=== PATIENT | female | born 1975 | race Caucasian/White ===

== ENCOUNTER 2019-05-04 06:30 | Emergency (ER) | payer OTHER ==
[~2019-05-04] VITALS: Ht 172.7 cm; Wt 77.1 kg
[2019-05-04] MEDS ORDERED: DULOXETINE HCL30 MG PO (06:44)
[2019-05-04] MEDS ORDERED: LISINOPRIL2.5 MG PO (06:44)
[2019-05-04] MEDS ORDERED: METHYLPHENIDATE10 M4 PO (06:45)
[2019-05-04] MEDS ORDERED: BIRTHCONTROL (06:46)
[2019-05-04] MEDS ORDERED: XANAX1 MG PO (06:46)
[2019-05-04] MEDS ORDERED: MUCINEX600 MG PO (06:47)
[2019-05-04] MEDS ORDERED: SUPER THERAVIT1 EACH PO (06:47)
[2019-05-04] MEDS ORDERED: XYZAL5 MG PO (06:47)
[2019-05-04] MEDS ORDERED: FLONASE 0.05%50 MCG NARES (06:47)
[2019-05-04] MEDS ORDERED: GLUCOSAMINE &1 EACH PO (06:47)
[2019-05-04 06:57] LABS: ABSOLUTE EOSINOPHILS 0.1 thou/uL (0.0-0.7); ABSOLUTE MONOCYTES 0.6 thou/uL (0.0-1.2); ABSOLUTE NEUTROPHILS 6.8 thou/uL (1.6-8.1); BASOPHILS 0.5 %; EOSINOPHILS 1.2 %; HEMATOCRIT 35.6 % (37.0-47.0); HEMOGLOBIN 12.4 gm/dL (12.0-15.0); LYMPHOCYTES 20.8 %; MCH 30.5 pg (26.0-34.0); MCHC 34.8 g/dL (28.0-37.0); MCV 87.5 fL (80.0-100.0); MONOCYTES 6.4 %; MPV 8.1 fl. (7.2-11.1); NUCLEATED RBCS 0 /100WBC; PLATELET COUNT* 364 thou/uL (150-400); POLYS 71.1 %; RBC 4.07 mil/uL (4.20-5.00); RDW-CV 12.6 % (10.5-14.5); WBC 9.6 thou/uL (4.0-11.0)
[2019-05-04 07:08] LABS: CALCIUM 9.3 mg/dL (8.5-10.1); CREATININE 0.8 mg/dL (0.6-1.3); POTASSIUM 3.7 mmol/L (3.5-5.1); PROTIME 9.8 Seconds (9.20-11.50)
[2019-05-04 07:13] LABS: TOTAL BILIRUBIN 0.3 mg/dL (<0.1-1.0); TOTAL PROTEIN 7.2 g/dL (6.4-8.2)
[2019-05-04 08:52] VITALS: BP 120/67
--- NOTE | 2019-05-04 16:53 | EKG ---
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
== END 2019-05-04 08:55 | disposition home or self-care (01) ==
LOC: M.ERS 06:30
PROVIDERS: Emergency Medicine
DX: S00.531A Contusion of lip, initial encounter (principal); S40.012A Contusion of left shoulder, initial encounter; R55 Syncope and collapse; I10 Essential (primary) hypertension; W01.0XXA Fall on same level from slipping, tripping and stumbling without subsequent striking against object, initial encounter; Y93.89 Activity, other specified; Y92.89 Other specified places as the place of occurrence of the external cause; Y99.8 Other external cause status